=== PATIENT | male | born 1965 ===

== ENCOUNTER 2017-09-22 14:27 | Outpatient (CLI) | payer OTHER | END 2017-09-22 14:28 | disposition home or self-care (01) | LOC: BICULT 14:27 | PROVIDERS: ATTEND Family Medicine | DX: Z51.81 Encounter for therapeutic drug level monitoring (principal); Z86.718 Personal history of other venous thrombosis and embolism; I82.412 Acute embolism and thrombosis of left femoral vein; I82.432 Acute embolism and thrombosis of left popliteal vein; Z79.01 Long term (current) use of anticoagulants ==